=== PATIENT | male | born 1990 | race Caucasian/White ===

== ENCOUNTER 2023-02-17 11:27 | Emergency (ER) | payer OTHER, SELFPAY ==
--- NOTE | ~2023-02-17 | CT_ITS ---
EXAMINATION: CT abdomen pelvis wo con DATE: 02/17/2023 12:28 INDICATION: Right flank pain TECHNIQUE: Computed tomography (CT) of the abdomen and pelvis was performed without intravenous contr ast. Automated exposure control and iterative reconstruction technique were employed. The dose-length product was 479.77 mGy-cm. COMPARISON: None FINDINGS: Lung bases are clear. Heart size is normal. No pericardial or pleural effusion. Liver, gallbladder, s pleen, pancreas, bilateral adrenal glands and kidneys are normal. Ureters and bladder are normal. No urolithiasis. Bowels including the appendix are normal. Small fat-containing umbilical hernia. No lissette e intraperitoneal gas or fluid. No pathologically enlarged abdominal or pelvic lymphadenopathy. Bones are unremarkable. IMPRESSION: 1. Small fat-containing umbilical hernia. No urolithiasis or acute intra-abdominal/pelvic process. Reviewed, dictated and finalized at location A. IMPRESSION: 1. Small fat-containing umbilical hernia. No urolithiasis or acute intra-abdomi nal/pelvic process.
[2023-02-17 11:30] VITALS: BP 134/89; PULSE 84; RESP 17; TEMP 37.1; O2SAT 98
[2023-02-17 11:41] LABS: Appearance Urine Clear (Clear); Bilirubin Urine Negative (Negative); Blood Urine Negative (Negative); Color Urine Yellow (Yellow); Glucose Urine UA Negative (Negative); Ketones Urine Negative (Negative); Leukocyte Esterase Ur Negative LEU/UL (Negative); Nitrate Urine Negative (Negative); Protein Urine Negative (Negative); Specific Grav Ur >= 1.030 (1.010-1.020); Urobilinogen Urine 0.2 mg/dL (0.2-1.0); pH Urine 5.5 (5.0-8.0)
[2023-02-17 11:43] LABS: Add Urine Microscopic? NO
--- NOTE | 2023-02-17 11:43 | ED.BACK ---
HPI - Back Pain/Injury General Chief Complaint: Back Pain/Injury Stated Complaint: R flank pain Time Seen by Provider: 02/17/23 11:31 Source: patient Mode of arrival: ambulatory Limitations: no limitations History of Present Illness HPI Narrative: 32 year old male presents to the Emergency Department complaining of right lower flank pain. Onset 2 days ago. Feels like needs to urinate, but only going small amounts. No prior history of. No history of kidney stones. MD elicited complaint: back pain Onset (ago): day(s) (2) Timing: constant Similar Symptoms Previously: No Radiation: none Exacerbating factors: none Relieving factors: none Associated symptoms: denies other symptoms Related Data Allergies Allergy/AdvReac Type Severity Reaction Status Date / Time No Known Allergies Allergy Verified 02/17/23 11:28 Review of Systems Review of Systems: All systems reviewed & are unremarkable except as noted in HPI and below Constitutional: Constitutional: Reports as per HPI Eyes: Eyes: Reports as per HPI ENT: Reports system reviewed and no additional complaints, except as documented Cardiovascular: Cardiovascular: Reports as per HPI Respiratory: Respiratory: Reports as per HPI Gastrointestinal: Gastrointestinal: Reports as per HPI Genitourinary: Genitourinary: Reports no additional male genitourinary complaints, Reports as per HPI and Reports oliguria Musculoskeletal: Musculoskeletal: Reports no additional musculoskeletal complaints, Reports as per HPI and Reports back pain Integumentary/Breasts: Skin/Breast: Reports system reviewed and no additional complaints, except as docu Neurologic: Reports system reviewed and no additional complaints, except as documented Exam Const: General: healthy appearing Nutritional Appearance: well nourished Orientation/consciousness: patient oriented x3 Limitations: no limitations HENMT: Head: normal to inspection Ears: external ears normal Face/Nose/Sinus: Normal external nose present Face and sinus: normal facial exam Eyes: Conjunctivae: conjunctivae normal Pupils: Equal, round and reactive pupils present EOM: EOMs intact bilaterally Direct Ophthalmoscopy: no photophobia Neck: Neck: normal visual inspection Chest: Chest palpation & inspection: normal inspection of the chest Resp: Effort & Inspection: normal respiratory effort Cardio: Rate: regular rate Rhythm: regular rhythm GI: Inspection: non-distended : General: Yes bladder normal to palpation Back/Spine/Pelvis: Back: CVA tenderness (slight with percussion on right) Skin: General skin exam: normal color Rashes: no rashes Wounds: no wounds Neuro: General: patient oriented x3, moves all extremities and no meningeal signs Cranial nerves: Yes Nystagmus not present Speech: normal speech Gait exam (Neuro): Normal gait present Other: Grossly normal Extrem: General: normal to inspection Course Course Emergency Course: 32 y/o male presents to the Emergency Department complaining of right lower flank pain. Onset 2 days ago. Denies trauma. No prior history of. denies history of kidney stones. PE: mild right CVA tenderness to percussion UA: unremarkable CT Abd/Pelvis: small umbilical hernia, o/w unremarkable *reviewed and discussed results with patient and his spouse. discussed further management. Patient voices understanding and agreement Rx and Instructions Vital Signs Vital signs: Vital Signs Temperature 37.1 C 02/17/23 11:30 Pulse Rate 84 02/17/23 11:30 Respiratory Rate 17 02/17/23 11:30 Blood Pressure 134/89 02/17/23 11:30 Pulse Oximetry 98 02/17/23 11:30 Oxygen Delivery Room Air 02/17/23 11:30 Temperature 37.1 C 02/17/23 11:30 Pulse Rate 84 02/17/23 11:30 Respiratory Rate 17 02/17/23 11:30 Blood Pressure 134/89 02/17/23 11:30 Pulse Oximetry 98 02/17/23 11:30 Oxygen Delivery Room Air 02/17/23 11:30 MDM - Back Pain/Injury Lab Data
[2023-02-17 13:12] VITALS: BP 141/73; PULSE 65; RESP 17; TEMP 36.7; O2SAT 98
== END 2023-02-17 13:12 | disposition home or self-care (01) ==
PROVIDERS: Emergency Provider Emergency Medicine
DX: S39.012A Strain of muscle, fascia and tendon of lower back, initial encounter (principal); X58.XXXA Exposure to other specified factors, initial encounter
CPT/HCPCS: 74176; 81003; 99284